=== PATIENT | female | born 1940 | race Caucasian/White ===

== ENCOUNTER → 2017-02-02 | Outpatient (CLI) | payer MEDICARE, OTHER ==
[~2017-02-02] MED LIST: CHLO25TA2 PO; FAMOTIDINE 20 MG/2 ML VIAL ONE
[2017-02-02 14:13] LABS: BLOOD, URINE NEG (NEG); GLUCOSE,URINE NEG (NEG); KETONE, URINE NEG (NEG); NITRITE,URINE NEG (NEG); PH, URINE 7.5 (5.0-8.5); SQUAMOUS EPITHELIAL CELL URINE <1 /hpf (0-5); TRANSITIONAL EPI CELLS, URINE <1 /hpf; URINE COLOR LIGHT-YELLOW (YELLW/STRAW)
[2017-02-02 14:17] LABS: HEMATOCRIT 41.1 % (35.0-46.0); MEAN CELL VOLUME 87.4 FL (80.0-100.0); MEAN CORPUSCULAR HEMOGLOBIN 29.7 PG (27.0-34.0); PLATELET COUNT 272 TH/MM3 (150-450); RED CELL DISTRIBUTION WIDTH 13.5 % (11.6-17.2); REVIEW FLAG FINAL; WHITE BLOOD COUNT 7.7 TH/MM3 (4.0-11.0)
[2017-02-02 14:40] LABS: ALT (GPT) 22 U/L (10-53); ANION GAP 8 MEQ/L (5-15); AST (GOT) 18 U/L (15-37); BICARBONATE 31.4 MEQ/L (21.0-32.0); CHLORIDE 99 MEQ/L (98-107); GLOMERULAR FILTRATION RATE 84 ML/MIN (>89); GLUCOSE,FASTING 87 MG/DL (74-99); POTASSIUM 3.7 MEQ/L (3.5-5.1); SODIUM (NA) 138 MEQ/L (136-145)
[2017-02-02 14:45] LABS: ALKALINE PHOSPHATASE 53 U/L (45-117); BLOOD UREA NITROGEN 9 MG/DL (7-18); TOTAL BILIRUBIN ADULT 0.4 MG/DL (0.2-1.0)
--- NOTE | 2017-02-02 16:27 | RADRPT ---
EXAM DATE/TIME: 02/02/2017 13:39 [place] COMPARISON: No previous studies available for comparison. INDICATIONS : Evaluate for pneumonia, pneumothorax and communicable diseases. Pre-op for hysteroscopy. MEDICAL HISTORY : Hypertension. SURGICAL HISTORY : None. ENCOUNTER: Initial ACUITY: 1 day PAIN SCORE: 0/10 LOCATION: Bilateral chest FINDINGS: PA and lateral views of the chest demonstrate the lungs to be symmetrically aerated without evidence of mass, infiltrate or effusion. The cardiomediastinal contours are unremarkable. Osseous structure s are intact. CONCLUSION: No acute disease. Pablito Muñiz MD FACR on February 02, 2017 at 16:24 Board Certified Radiologist. This report was verified electronically.
--- NOTE | 2017-02-02 17:03 | EKG ---
Date Performed: 02/02/2017 Time Performed: 13:01:48 PTAGE: 76 years EKG: Baseline artifact Sinus rhythm LOW QRS VOLTAGE IN PRECORDIAL LEADS BORDERLINE ECG NO PREVIOUS TRACING DOCTOR: Arnol Cha Interpretating Date/Time 02/02/2017 17:02:06
== END ==
LOC: CPRE 12:34
PROVIDERS: ATTEND Obstetrics & Gynecology
DX: Z01.810 Encounter for preprocedural cardiovascular examination (principal); Z01.811 Encounter for preprocedural respiratory examination; Z01.812 Encounter for preprocedural laboratory examination; R19.00 Intra-abdominal and pelvic swelling, mass and lump, unspecified site; R93.8 Abnormal findings on diagnostic imaging of other specified body structures; R94.31 Abnormal electrocardiogram [ECG] [EKG]
CPT/HCPCS: 36415; 71020; 80053; 81001; 85027; 93005

== ENCOUNTER → 2017-02-04 | Day surgery (SDC) | payer MEDICARE, OTHER ==
[~2017-02-04] VITALS: Ht 152.4 cm; Wt 53.1 kg
[~2017-02-04] MED LIST changes: +ACETAMINOPHEN/HYDROcodone 325 MG/5 MG TAB PO PRN; +AMIT25 PO; +BENI40TA30 PO; +CHLORHEXIDINE GLUCONATE 2 % 1 PACK (2 CLOTHS) TOPICAL PRN; +CYCL-36 PO; +DEXAMETHASONE SOD PHOS 4 MG/ML VIAL ONE; +DO NOT ADM ANY ANTICOAGULANT DRUGS PRN; +INSULIN HUMAN REGULAR 1,000 UNITS/10 ML VIAL SQ PRN; +KETOROLAC TROMETHAMINE 60 MG/2 ML (IM) VIAL IM ONE; +LACTATED RINGER'S 1000 ML INJ 1,000 ML IV ONE; +LACTATED RINGER'S 1000 ML IV PRN; +METOPROLOL TARTRATE 25 MG TAB PO PRN; +MIDAZOLAM HCL 2 MG/2 ML VIAL ONE; +ONDANSETRON HCL 4 MG/2 ML VIAL IV PUSH ONE; +ONDANSETRON HCL 4 MG/2 ML VIAL IV PUSH PRN; +POVIDONE IODINE 5% (ANTISEPSIS KIT) 4 APPLICATIONS EACH NARE PRN; +PROPOFOL 200 MG/20 ML AMP IV ONE; +SODIUM CHLORID 0.9% 500 ML IV PRN; +ULTR50TA PO
[2017-02-04 09:16] VITALS: BP 152/80; PULSE 80; RESP 16; TEMP 98.2; O2SAT 98
[2017-02-04 12:45] VITALS: BP 146/65; PULSE 64; RESP 16; TEMP 97.8; O2SAT 97
--- NOTE | 2017-02-04 13:37 | MP ---
cc: Tanna HERNANDEZ MD DATE OF SURGERY: 02/04/2017 PREOPERATIVE DIAGNOSIS 1. Postmenopausal bleeding. 2. Thickened endometrium. 3. Endometrial polyps. POSTOPERATIVE DIAGNOSIS 1. Postmenopausal bleeding. 2. Thickened endometrium. 3. Endometrial polyps. PROCEDURE Examination under anesthesia, hysteroscopic exam, dilation and curettage with the MyoSure, endometrial polypectomy. ANESTHESIA General. SURGEON Tanna Hernandez MD FINDINGS Examination under anesthesia: Vagina was atrophic but clean. The cervix was clean and atrophic, but no distinct lesions. There was a pinpoint os. The uterus was slightly enlarged but freely mobile. The adnexa was negative for masses with a careful exam. The hysteroscopic exam revealed a posterior pedunculated polyp approximately 1 cm in length. The endometrium looked overgrown and fluffy. The uterus sounded to 10 cm. The polyp and endometrial curettings were done with the MyoSure. COMPLICATIONS None. COUNTS Correct. ESTIMATED BLOOD LOSS Minimal. CONDITION The patient tolerated the procedure well and went to the recovery room in good condition. She did receive some Toradol in the operating theatre. PROCEDURE IN DETAIL The patient was taken to the operating room, identified by name band and verbally, given a general anesthetic, carefully placed in dorsal lithotomy position, prepped and draped in the usual sterile fashion for vaginal surgery. A timeout was taken and examination under anesthesia was carried out after the urinary bladder was drained with in-and-out catheter. A weighted speculum was placed in the vagina. The anterior lip of the cervix was grasped with a single-tooth tenaculum. There was a pinpoint cervix and I had to use a silver wire, but once we began the dilation it went very easily. The hysteroscope was inserted and the entire endometrial cavity was carefully assessed. In the lower uterine segment at the posterior wall there was a large polyp blocking the entrance and we had to use the MyoSure to get past this. Once we were into the uterine cavity completely we got a good sample with the MyoSure of all areas of the endometrium. There were no more polyps or submucous myomas seen. Once this had been accomplished sharp curetting with a #1 sharp curette was carried out. The instruments were removed. She tolerated the procedure well and went to the recovery room in good condition. R. MD ZO Abraham/AMNA /11:49 AM /1:34 PM
== END | disposition home or self-care (01) ==
LOC: HSDC 08:46
PROVIDERS: ATTEND Obstetrics & Gynecology
DX: N95.0 Postmenopausal bleeding (principal); R93.8 Abnormal findings on diagnostic imaging of other specified body structures; N84.0 Polyp of corpus uteri
CPT/HCPCS: 00952; 58558; 88305; J1100; J1885; J2250; J2405; J3010; J7120

== ENCOUNTER → 2017-03-05 | Outpatient (CLI) | payer MEDICAID, MEDICARE ==
[~2017-03-05] MED LIST changes: -ACETAMINOPHEN/HYDROcodone 325 MG/5 MG TAB PO PRN; -CHLORHEXIDINE GLUCONATE 2 % 1 PACK (2 CLOTHS) TOPICAL PRN; -DEXAMETHASONE SOD PHOS 4 MG/ML VIAL ONE; -DO NOT ADM ANY ANTICOAGULANT DRUGS PRN; -FAMOTIDINE 20 MG/2 ML VIAL ONE; -INSULIN HUMAN REGULAR 1,000 UNITS/10 ML VIAL SQ PRN; -KETOROLAC TROMETHAMINE 60 MG/2 ML (IM) VIAL IM ONE; -LACTATED RINGER'S 1000 ML INJ 1,000 ML IV ONE; -LACTATED RINGER'S 1000 ML IV PRN; -METOPROLOL TARTRATE 25 MG TAB PO PRN; -MIDAZOLAM HCL 2 MG/2 ML VIAL ONE; -ONDANSETRON HCL 4 MG/2 ML VIAL IV PUSH ONE; -ONDANSETRON HCL 4 MG/2 ML VIAL IV PUSH PRN; +OXYC1TAB63 PO; -POVIDONE IODINE 5% (ANTISEPSIS KIT) 4 APPLICATIONS EACH NARE PRN; -PROPOFOL 200 MG/20 ML AMP IV ONE; -SODIUM CHLORID 0.9% 500 ML IV PRN
[2017-03-05 16:14] LABS: AUTOMATED NEUTROPHIL # 6.1 TH/MM3 (1.8-7.7); BASOPHIL # 0.1 TH/MM3 (0-0.2); BASOPHIL % 0.6 % (0.0-2.0); EOSINOPHIL # 0.1 TH/MM3 (0-0.4); EOSINOPHIL % 1.3 % (0.0-4.0); HEMATOCRIT 40.7 % (35.0-46.0); HEMO FLAGS DIFF FINAL; LYMPH % 19.8 % (9.0-44.0); LYMPHOCYTE # 1.7 TH/MM3 (1.0-4.8); MEAN CELL VOLUME 87.8 FL (80.0-100.0); MEAN CORPUSCULAR HEMOGLOBIN 29.4 PG (27.0-34.0); MEAN CORPUSCULAR HGB CONC 33.5 % (32.0-36.0); MONO % 7.6 % (0.0-8.0); NEUT % 70.7 % (16.0-70.0); PLATELET COUNT 274 TH/MM3 (150-450); RED BLOOD COUNT 4.64 MIL/MM3 (4.00-5.30); RED CELL DISTRIBUTION WIDTH 13.6 % (11.6-17.2); WHITE BLOOD COUNT 8.7 TH/MM3 (4.0-11.0)
[2017-03-05 16:21] LABS: APTT (PATIENT) 26.2 SEC (24.3-30.1); INTERNATIONAL NORMALIZED RATIO 0.9 RATIO; PROTHROMBIN TIME - PATIENT 10.2 SEC (9.8-11.6)
[2017-03-05 16:38] LABS: ANION GAP 10 MEQ/L (5-15); AST (GOT) 19 U/L (15-37); BICARBONATE 30.2 MEQ/L (21.0-32.0); BLOOD UREA NITROGEN 14 MG/DL (7-18); CHLORIDE 100 MEQ/L (98-107); GLOMERULAR FILTRATION RATE 81 ML/MIN (>89); GLUCOSE,FASTING 95 MG/DL (74-99); POTASSIUM 3.4 MEQ/L (3.5-5.1); SODIUM (NA) 140 MEQ/L (136-145)
[2017-03-05 16:43] LABS: ALKALINE PHOSPHATASE 64 U/L (45-117); ALT (GPT) 22 U/L (10-53); TOTAL BILIRUBIN ADULT 0.3 MG/DL (0.2-1.0)
== END ==
LOC: CPRE 14:43
PROVIDERS: ATTEND Obstetrics & Gynecology Gynecologic Oncology
DX: Z01.810 Encounter for preprocedural cardiovascular examination (principal); Z01.811 Encounter for preprocedural respiratory examination; Z01.812 Encounter for preprocedural laboratory examination; C54.1 Malignant neoplasm of endometrium
CPT/HCPCS: 36415; 80053; 85025; 85610; 85730

== ENCOUNTER 2017-03-12 08:52 | Observation (INO) | payer MEDICAID, MEDICARE ==
[~2017-03-12] VITALS: Ht 142.2 cm; Wt 53.2 kg
[~2017-03-12 08:52] MED LIST changes: -AMIT25 PO; -BENI40TA30 PO; -CYCL-36 PO; -OXYC1TAB63 PO; -ULTR50TA PO
[2017-03-12 09:41] VITALS: BP 132/74; PULSE 76; RESP 20; TEMP 98.7; O2SAT 97
[2017-03-12] MEDS ORDERED: CHLORHEXIDINE GLUCONATE 2 % 1 PACK (2 CLOTHS) TOPICAL PRN (09:45)
[2017-03-12] MEDS ORDERED: POVIDONE IODINE 5% (ANTISEPSIS KIT) 4 APPLICATIONS EACH NARE PRN (09:45)
[2017-03-12] MEDS ORDERED: INSULIN HUMAN REGULAR 1,000 UNITS/10 ML VIAL SQ PRN (09:45)
[2017-03-12] MEDS ORDERED: LACTATED RINGER'S 1000 ML IV PRN (09:45)
[2017-03-12] MEDS ORDERED: SODIUM CHLORID 0.9% 500 ML IV PRN (09:45)
[2017-03-12] MEDS ORDERED: METOPROLOL TARTRATE 25 MG TAB PO PRN (09:45)
[2017-03-12] MEDS ORDERED: LEVOFLOXACIN 500 MG PREMIX INJ 100 ML IV ONE ×2 (10:13→10:30)
[2017-03-12] MEDS ORDERED: HEPARIN SODIUM - SQ 10,000 UNITS/ML VIAL ONE (10:13)
[2017-03-12] MEDS ORDERED: metroNIDAZOLE 500 MG INJ 100 ML IV ONE (10:14)
[2017-03-12] MEDS ORDERED: HEPARIN SODIUM - SQ 10,000 UNITS/ML VIAL SQ SCH (10:30)
[2017-03-12] MEDS ORDERED: METRONIDAZOLE 500 MG/100 ML ISONTONIC SOLN IV ONE (10:30)
[2017-03-12] MEDS ORDERED: ACETAMINOPHEN 1000 MG/100 ML VIAL IV ONE (11:07)
[2017-03-12] MEDS ORDERED: SUGAMMADEX SODIUM 200 MG/2 ML VIAL IV PUSH ONE ×2 (11:07)
[2017-03-12] MEDS ORDERED: MIDAZOLAM HCL 2 MG/2 ML VIAL ONE (11:12)
[2017-03-12] MEDS ORDERED: DEXAMETHASONE SOD PHOS 4 MG/ML VIAL ONE (11:13)
[2017-03-12] MEDS ORDERED: FAMOTIDINE 20 MG/2 ML VIAL ONE (11:13)
[2017-03-12] MEDS ORDERED: LACTATED RINGER'S 1000 ML INJ 1,000 ML IV ONE (12:00)
[2017-03-12] MEDS ORDERED: PHENYLEPH/NS 1000 MCG/10 ML SYR IV ONE (12:00)
[2017-03-12] MEDS ORDERED: VECURONIUM BROMIDE 10 MG VIAL IV ONE (12:00)
[2017-03-12] MEDS ORDERED: NORMOSOL R INJ 1,000 ML IV ONE (12:00)
[2017-03-12] MEDS ORDERED: ONDANSETRON HCL 4 MG/2 ML VIAL IV PUSH ONE (12:00)
[2017-03-12] MEDS ORDERED: KETOROLAC TROMETHAMINE 60 MG/2 ML (IM) VIAL IM ONE (12:00)
[2017-03-12] MEDS ORDERED: PROPOFOL 200 MG/20 ML AMP IV ONE (12:00)
[2017-03-12] MEDS ORDERED: LIDOCAINE 1.5%/EPINEPHrine 1:200,000 PF SOLN 30 ML AMP INFIL ONE (12:30)
[2017-03-12] MEDS ORDERED: METHYLENE BLUE 10 MG/ML VIAL OTHER ONE (13:44)
[2017-03-12] MEDS ORDERED: DO NOT ADM ANY ANTICOAGULANT DRUGS PRN (15:53)
[2017-03-12] MEDS: KETOROLAC TROMETHAMINE 30 MG/ML (IVP) VIAL IVP SCH ×2 (16:00→20:40)
[2017-03-12] MEDS ORDERED: diphenhydrAMINE HCL 25 MG CAP PO PRN (16:00)
[2017-03-12] MEDS ORDERED: SODIUM CHLORIDE 0.9% FLUSH 10 ML FLUSH IV FLUSH PRN (16:00)
[2017-03-12] MEDS ORDERED: ONDANSETRON HCL 4 MG/2 ML VIAL IVP PRN (16:00)
[2017-03-12] MEDS ORDERED: oxyCODONE/ACETAMINOPHEN 5 MG/325 MG TAB PO PRN ×2 (16:00)
[2017-03-12] MEDS ORDERED: LORazepam 0.5 MG TAB PO PRN (16:00)
[2017-03-12] MEDS: D5-1/2 NS + KCL 20 MEQ INJ 1,000 ML IV SCH (17:00)
[2017-03-12] MEDS ORDERED: *morphine SULFATE 8 MG/ML PERIprocedure ONLY ONE (19:29)
[2017-03-12] MEDS: SODIUM CHLORIDE 0.9% FLUSH 10 ML FLUSH IV FLUSH SCH (20:35)
[2017-03-12 21:26] VITALS: BP 110/64; PULSE 78; RESP 17; TEMP 97.6; O2SAT 99
[2017-03-13] VITALS: BP 117/64; PULSE 74; RESP 17; TEMP 98.2; O2SAT 97
[2017-03-13 01:04] VITALS: O2SAT 98
[2017-03-13] MEDS: KETOROLAC TROMETHAMINE 30 MG/ML (IVP) VIAL IVP SCH ×2 (03:40→10:39)
[2017-03-13] MEDS: D5-1/2 NS + KCL 20 MEQ INJ 1,000 ML IV SCH (03:40)
[2017-03-13 04:00] VITALS: BP 117/56; PULSE 78; RESP 17; TEMP 98.6; O2SAT 98
[2017-03-13] MEDS ORDERED: OXYC1TAB63 PO (06:47)
[2017-03-13 07:50] LABS: AUTOMATED NEUTROPHIL # 8.7 TH/MM3 (1.8-7.7); BASOPHIL % 0.2 % (0.0-2.0); HEMO FLAGS DIFF FINAL; LYMPH % 8.7 % (9.0-44.0); LYMPHOCYTE # 0.9 TH/MM3 (1.0-4.8); MEAN CELL VOLUME 87.2 FL (80.0-100.0); MEAN CORPUSCULAR HEMOGLOBIN 29.8 PG (27.0-34.0); MEAN CORPUSCULAR HGB CONC 34.2 % (32.0-36.0); MONO % 10.5 % (0.0-8.0); NEUT % 80.6 % (16.0-70.0); PLATELET COUNT 245 TH/MM3 (150-450); RED CELL DISTRIBUTION WIDTH 13.3 % (11.6-17.2); WHITE BLOOD COUNT 10.7 TH/MM3 (4.0-11.0)
[2017-03-13 08:00] VITALS: BP 109/58; PULSE 78; RESP 16; TEMP 96.5; O2SAT 96
[2017-03-13 08:23] LABS: BICARBONATE 26.7 MEQ/L (21.0-32.0); POTASSIUM 3.2 MEQ/L (3.5-5.1)
[2017-03-13] MEDS: SODIUM CHLORIDE 0.9% FLUSH 10 ML FLUSH IV FLUSH SCH (09:00)
[2017-03-13] MEDS ORDERED: POTASSIUM CHLORIDE 20 MEQ CONTROLLED RELEASE TAB PO ONE (10:30)
[2017-03-13 12:00] VITALS: BP 99/57; PULSE 72; RESP 16; TEMP 98.1; O2SAT 96
--- NOTE | 2017-03-18 07:49 | MP ---
cc: EMMANUEL WANG KELLY L. MD KROCHAK, ELIZABETH M.D. DATE OF SURGERY 03/12/2017 PREOPERATIVE DIAGNOSIS Endometrial adenocarcinoma. POSTOPERATIVE DIAGNOSIS Endometrial adenocarcinoma. SURGERY Robotic-assisted laparoscopic hysterectomy, bilateral salpingo-oophorectomy, bilateral pelvic lymphadenectomy, para-aortic lymph node biopsies. SURGEON Tawny Leonard MD ANESTHESIA General endotracheal anesthesia. ESTIMATED BLOOD LOSS 150 cc. IV FLUIDS 2700 cc. URINE OUTPUT 650 cc. HISTORY This is a 76-year-old female with postmenopausal bleeding, thickened endometrial stripe. Biopsy showed a grade 1 endometrial adenocarcinoma. She was counseled and presents now in favor of surgical management. She is seen again in the preop holding area where we again discussed the findings, recommendations for surgery, the potential recommendation for lymph node dissection, the pros and cons of this. Questions were asked and answered. She expressed good understanding and agreed to move forward with whatever we felt was necessary in her evaluation and treatment. FINDINGS The uterus sounded to 9-10 cm, symmetrically enlarged. The tubes and ovaries grossly appeared normal. There were no overtly enlarged pelvic or para-aortic lymph nodes. Peritoneal surfaces were smooth. The liver diaphragm edges were smooth. The omentum grossly appeared normal. Large and small bowel and adjacent mesentery were without peritoneal implants. The uterus once removed showed a fairly sizable tumor in the endometrial cavity. I believe the estimate was at least 4 cm but it had deep myometrial invasion. Preliminary estimate was a myometrium of 22 mm with a depth of invasion of at least 18 mm. PROCEDURE The patient was taken to the operating room, placed in dorsal lithotomy position. After general endotracheal anesthesia was administered, time-out was undertaken. She was identified by sight recognition and hospital ID bracelet and the proposed procedure was reviewed and confirmed. She was carefully positioned in padded Pollo stirrups. Her arms were padded and secured to the sides. She was further secured to the operating table with eggcrate padding and tape in across chest, over the shoulder fashion. All sites were noted to be properly aligned with no malalignments or pressure points. She was prepped in sterile fashion, draped below the waist, placed in high lithotomy position. The cervix was grasped, uterine cavity sounded. The cervix was dilated. Standard V-Care manipulator inserted and secured in the usual fashion. Serrano catheter was placed in the bladder. She has returned to low lithotomy position. Change of sterile gloves was undertaken. We completed draping in anticipation of laparoscopy. After confirming that an orogastric tube was in the stomach on suction and with manual elevation of the abdominal wall and direct laparoscopic visualization, a 5-mm cannula was introduced into the left upper quadrant. Carbon dioxide gas was insufflated and an atraumatic entry was confirmed. A 12-mm cannula was placed in the midline above the umbilicus. An 8-mm cannulas was placed in the right upper abdomen, left lateral abdomen and the original 5 exchanged for a 8-mm cannula. The anatomy was surveyed with findings as described above. She was placed in Trendelenburg position. Peritoneal washings were obtained for cytology. The small bowel was folded back on its mesenteric root and three Ray-Ginger sponges were placed around the root of the small bowel mesentery. The robotic system was brought into the operative field, attached in the usual fashion. Monopolar scissors, fenestrated bipolar forceps and ProGrasp manipulators were placed in arms #1, 2 and 3 respectively and I took my place at the surgeon's console. The right round ligament was isolated, cauterized, transected. The anterior and posterior leaves of the broad ligament were opened. The right ureter was identified. The right infundibulopelvic ligament was isolated. The right infundibulopelvic ligament was dissected to the level of the pelvic brim where it was cauterized and transected. The posterior peritoneum was dissected off the lower uterine segment and cervix on the right and vesicouterine peritoneum was dissected down below the level of the cervix on the right and the right uterine vessels were skeletonized, cauterized and transected as were the cardinal, paracervical and uterosacral ligaments. Attention was directed toward the left side where the left round ligament was isolated, cauterized and transected. The anterior and posterior leaves of the broad ligament were opened. The left ureter was identified. The left infundibulopelvic ligament was isolated and it was isolated to the level of the pelvic brim where it was cauterized and transected. The posterior peritoneum was opened along the left side of the uterus and cervix and the left vesicouterine peritoneum dissected off the lower uterine segment. The left uterine vessels were skeletonized, cauterized and transected as were the cardinal, paracervical and uterosacral ligaments. Colpotomy was performed the cervix from the vagina and the specimen was withdrawn transvaginally including uterus, cervix, tubes and ovaries and a pneumooccluder balloon was placed in the vagina to maintain pneumoperitoneum. Instruments #1 and 3 were exchanged for a needle fork truck driver. The needle fork truck driver with 0 Vicryl suture was introduced. The vaginal cuff was closed starting at the left corner, a full-thickness closure including the posterior peritoneum, edge of the uterosacral ligament, tied via instrument tie. The closure was held on countertraction as a running full-thickness closure was carried across the vaginal cuff to the contralateral corner where it was similarly secured, fixed and tied. The needle was cut and removed. Given the pathology showing high risk findings of a large tumor and deep myometrial invasion, attention was directed toward additional biopsies to assess for the possibility of microscopic metastatic disease. Attention was directed to the right pelvis where the right paravesical, perirectal and obturator spaces were developed. Lymphatic tissue was removed using bipolar cautery and sharp dissection starting at the bifurcation of the iliac vessels. The genitofemoral nerve was isolated and spared as the dissection was carried distally to the circumflex iliac vein. The medial border of dissection was the superior vesical artery and dissection was carried down to the base of the obturator space such that lymphatics ventral to the obturator nerve were removed and this en bloc specimen was placed in the right pelvis for later retrieval. Attention was taken higher as retroperitoneal dissection was carried out along the right common iliac artery, continued up along the lower portion of the aorta. Bipolar cautery and sharp dissection were used. The medial border of dissection was overlying the psoas muscle and the small collection of lymphatic tissue in the periaortic/pericaval space was isolated and removed with bipolar cautery and sharp dissection, placed in the periaortic region for later retrieval. Attention was redirected toward the pelvis as the left pelvic paravesical obturator and pararectal spaces were developed. Lymphatic tissue was dissected using bipolar cautery and sharp dissection as described on the right. The genitofemoral nerve was isolated and spared as the dissection was carried distally from above the bifurcation of the iliac vessels distally to the circumflex iliac vein, medially to the superior vesical artery and to the base of the dissection as lymphatics ventral to the obturator nerve were dissected and is en bloc specimen was placed in the left pelvis for later retrieval. The integrity of the bladder was confirmed by filling the bladder with saline dyed with methylene blue. It filled nicely under pressure. There was no areas of blue to suggest thinning of the bladder, certainly no extravasation of dye. There was a good margin between the bladder edge and the vaginal cuff suture line, good peristalsis of ureters bilaterally. The neurovascular structures were intact. The bladder was drained. Hemostatic agent was placed across the vaginal cuff and the lymph node dissection beds. It was felt that all reasonable surgical objectives had been completed. The robotic instruments were removed. The robotic system was disengaged from the operative field. I reentered the bedside under sterile condition. Each of the three Ray-Ginger sponges that had been placed in the peritoneal cavity were removed. They were removed individually and inspected and noted to be removed in their entirety. Next, an EndoCatch bag was used to capture the right pelvic lymph nodes and the para-aortic lymph nodes were then delivered through the 12-mm cannula and they were after delivery. Then the EndoCatch bag was used to capture and remove the left pelvic lymph nodes in a similar fashion. Inspection of the peritoneal cavity confirmed there were no remaining foreign objects in the peritoneal cavity, there was good hemostasis, preliminary counts were correct and attention was directed toward closing. The 12-mm fascial defect was closed with 0 Vicryl sutures using a needle pass apparatus and the tied securely which rendered the fascia completely airtight and hemostatic. The remaining cannulas were withdrawn. Carbon dioxide gas was removed from the peritoneal cavity. 3-0 Vicryl subcutaneous, 3-0 Vicryl subcuticular and Steri-Strips were used to close these incisions. She was returned to dorsal lithotomy position. Pelvic exam confirmed the vaginal cuff was well supported and hemostatic, no vaginal lacerations, no remaining foreign objects in the vagina and final counts were correct. She was returned to dorsal supine position and was pending reversal of anesthesia when I left the operating room to precede her to the Post-Anesthesia Care Unit. MD MARC Johns/ROBERTO /7:29 AM /7:28 AM
--- NOTE | 2017-03-19 13:07 | MD ---
cc: EMMANUEL WANG KELLY L. MD KROCHAK, ELIZABETH M.D. ADMISSION DATE: 03/12/2017 DISCHARGE DATE: 03/13/2017 PROCEDURE 03/12/2017 - Robotic-assisted laparoscopic hysterectomy, bilateral salpingo-oophorectomy, bilateral pelvic lymphadenectomy, para-aortic lymph node biopsies. DIAGNOSIS Endometrial cancer. HOSPITAL COURSE She did well during early postop. She was tolerating oral intake. Serrano catheter was removed pending voiding. She has been out of bed. No persistent complaints. Ins and outs 3200/1825. LABS H&H 11.6, 34.0. Electrolytes - Creatinine 0.62, potassium 3.2. PHYSICAL EXAMINATION VITAL SIGNS: Afebrile, pulse 72-78, respirations 16-18, blood pressure 99-117/56-64. O2 saturations greater than or equal to 96%. GENERAL: Alert and oriented x 3, in no acute distress. LUNGS: Clear except for mild rales. CARDIOVASCULAR: Regular rate and rhythm. ABDOMEN: Soft. Incision is clean and dry. COVERING MACHINE TENDER: No bleeding. EXTREMITIES: Nontender. ASSESSMENT Postop day #1 doing well in early postoperative. Findings and activities discussed and reviewed, the preliminary pathology, steps taken to surgery were reviewed. Questions were answered. She expressed good understanding as did her daughter who was present. PLAN Therefore anticipate meeting criteria for discharge to home. She is to resume prior medications, will have a prescription for Percocet. Our office number is made available and she is to contact our office to schedule followup in two weeks or to contact us at any time with questions or problems. MD MARC Johns/ROBERTO /4:32 PM /12:55 PM
== END 2017-03-13 15:24 | disposition home or self-care (01) ==
LOC: HSDC 08:52 → HSDI 15:50 → HOCB 20:59
PROVIDERS: ADMIT Obstetrics & Gynecology Gynecologic Oncology; ATTEND Obstetrics & Gynecology Gynecologic Oncology
DX: C54.1 Malignant neoplasm of endometrium (principal); D27.1 Benign neoplasm of left ovary; D25.2 Subserosal leiomyoma of uterus; N80.0 Endometriosis of uterus; D26.9 Other benign neoplasm of uterus, unspecified; N88.8 Other specified noninflammatory disorders of cervix uteri; N83.201 Unspecified ovarian cyst, right side; I10 Essential (primary) hypertension; E78.5 Hyperlipidemia, unspecified; K21.9 Gastro-esophageal reflux disease without esophagitis
CPT/HCPCS: 00840; 38572; 58571; 80048; 85025; 86850; 86900; 86901; 88112; 88307; 88309; 88331; 94150; G0378; J0131; J1100; J1644; J1885; J1956; J2250; J2270; J2370; J2405; J3010; J3480; J7120; S2900